=== PATIENT | male | born 1965 | race Caucasian/White ===

== ENCOUNTER 2016-04-18 17:39 | Inpatient (IN) | payer OTHER ==
[~2016-04-18] VITALS: Ht 157.5 cm; Wt 55.0 kg
[~2016-04-18 17:39] MED LIST: ADVIL,NUPRIN,M200 MG PO; ALLEGRA ALLERGY60 MG PO; ALLEGRA60 MG PO; ASPIR-LOW81 MG PO; ASPIRIN81 M2 PO; AUGMENTIN875 MG PO; BENADRYL ALLERG25 MG PO; BENADRYL25 MG PO; BUSPAR15 MG PO; BUSPIRONE HCL15 MG PO; CARDIZEM CD,CA120 MG PO; CARDIZEM CD120 M1 PO; CARDIZEM CD120 MG PO; CARDIZEM120 MG PO; CEPHALEXIN500 MG PO; CILOSTAZOL50 MG PO; CLONAZEPAM0.5 MG PO; CLONAZEPAM2 MG PO; CLONIDINE HCL0.1 MG PO; COLACE100 MG PO; DEPAKOTE ER (E500 MG PO; DEPAKOTE500 MG PO; DERMAPHOR228 GM TP; DIAZEPAM10 MG PO; DILTIAZEM 24HR120 MG PO; DIVALPROEX SOD500 MG PO; FLONASE16 G1 BOTH NARES; FLONASE16 GM NS; FUROSEMIDE20 MG PO; GLIPIZIDE ER2.5 MG PO; GLIPIZIDE XL5 MG PO; GLIPIZIDE5 MG PO; GLUCOTROL XL2.5 MG PO; HALCION0.25 MG PO; HALDOL0.5 MG PO; HALOPERIDOL0.5 MG PO; HEMORRHOIDAL OI57 G2 PR; JANUVIA100 MG PO; JANUVIA25 M1 PO; KLONOPIN0.5 M1 PO; KLONOPIN2 MG PO; KONSYL PSYLLIU3.4 GM PO; LASIX20 MG PO; LEVAQUIN500 MG PO; LEVAQUIN750 MG PO; LEVOFLOXACIN750 MG PO; LITHIUM CARBON300 MG NG; LITHIUM CARBON600 MG PO; LO-DOSE ASPIRIN81 M1 PO; LOPERAMIDE2 M1 PO; LOPERAMIDE2 MG PO; MELOXICAM15 MG PO; METFORMIN HCL1000 MG PO; MILK OF MAG W/360 ML PO; MITRAZOL POWDER30 GM PO; MOBIC15 MG PO; MUCINEX D ER T1 EACH PO; OLANZAPINE5 MG PO; PERIGUARD TP; PHILLIPS'400 MG/5 M PO; PLETAL50 MG PO; PREDNISONE10 MG PO; PREDNISONE20 MG PO; PROBIOTIC1 EAC1 PO; PSEUDOEPHEDRINE30 MG PO; Q-TUSSIN100 MG/5 M PO; REGULOID PO; RISPERDAL0.5 MG PO; RISPERDAL1 MG PO; ROBITUSSIN100 MG/5 M PO; SALINE NOSE SPR45 M1 BOTH NARES; SANI-SUPP1 EACH PR; TRADJENTA5 MG PO; TRIAZOLAM0.25 MG PO; TYLENOL REGULA325 MG PO; ULTRAVATE 0.05%15 GM PO; URSO FORTE500 MG PO; URSODIOL500 MG PO; ZIPRASIDONE HCL20 MG PO; ZYRTEC10 M2 PO
[2016-04-18 19:06] LABS: HEMATOCRIT 40.2 % (38.0-50.0); MCH 33.4 PG (29.0-34.0); MCHC 35.3 G/DL (30.0-36.0); MCV 94.6 FL (86-99); MEAN PLAT.VOLUME 9.2 uM^3 (9.0-12.4); PLATELET COUNT 130 K/uL (156-360); RBC DIS.WIDTH-CV 12.8 % (11.8-14.6); RBC DIS.WIDTH-SD 42.7 % (39-53); RED BLOOD COUNT 4.25 M/uL (4.00-5.50); WHITE BLOOD COUNT 7.8 K/uL (4.1-10.2)
[2016-04-18 19:14] LABS: CHLORIDE 111 mEq/L (99-109); POTASSIUM 4.2 mEq/L (3.7-5.4); SODIUM 145 mEq/L (136-147)
[2016-04-18 19:16] LABS: GLUCOSE 82 mg/dL (70-99)
[2016-04-18 19:17] LABS: ANION GAP 8 MEQ/L (2-14)
[2016-04-18 19:20] LABS: GFR ESTIMATE (CALCULATED) > 59 mL/min/
[2016-04-18 19:21] LABS: UREA NITROGEN (BUN) 25 mg/dL (9-23)
[2016-04-18 19:35] LABS: TOTAL BILIRUBIN 0.4 mg/dL (0.0-1.0)
[2016-04-18 19:36] LABS: ALKALINE PHOSPHATASE 123 IU/L (3-129)
[2016-04-18 19:39] LABS: DIRECT BILIRUBIN 0.2 mg/dL (0.0-0.3)
[2016-04-18 19:40] LABS: LIPASE 63 U/L (1.0-51.0)
[2016-04-18 19:46] LABS: TROP-I INTERPRETATION NEGATIVE; TROPONIN-I 0.02 ng/mL (0.0-0.30)
[2016-04-18 21:36] LABS: ADD MIUA? NO; BILIRUBIN NEGATIVE; BLOOD NEGATIVE; COLOR YELLOW ((YELLOW)); GLUCOSE (STRIP) NEGATIVE; KETONES NEGATIVE; LEUKOCYTES NEGATIVE; NITRITE NEGATIVE; PH, URINE 5.5 (5-8); PROTEIN (STRIP) NEGATIVE; UCUL ADDED? NO
[2016-04-18] MEDS ORDERED: AMLODIPINE BES2.5 MG PO (23:29)
[2016-04-18] MEDS ORDERED: CLONAZEPAM1 MG PO ×2 (23:44→23:48)
[2016-04-18] MEDS ORDERED: NEXIUM20 MG PO (23:49)
[2016-04-18 23:50] LABS: POINT-OF-CARE METER ID UU14100415
[2016-04-18] MEDS ORDERED: GLUCOTROL XL2.5 MG PO (23:51)
[2016-04-18] MEDS ORDERED: HYDROXYCHLOROQ200 MG PO (23:58)
[2016-04-19] MEDS ORDERED: MELOXICAM15 MG PO (00:04)
[2016-04-19] MEDS ORDERED: PERIGUARD TP (00:13)
[2016-04-19] MEDS ORDERED: PROBIOTIC1 EAC1 PO (00:22)
[2016-04-19 00:25] LABS: POINT-OF-CARE METER ID UU14100415
[2016-04-19] MEDS ORDERED: VITAMIN D31000 UNIT PO (00:27)
[2016-04-19] MEDS ORDERED: TRAMADOL HCL50 MG PO (00:34)
[2016-04-19] MEDS ORDERED: URSODIOL500 MG PO (00:34)
[2016-04-19] MEDS ORDERED: DIVALPROEX SOD500 MG PO (00:36)
[2016-04-19] MEDS ORDERED: GABAPENTIN100 MG PO (00:37)
[2016-04-19] MEDS ORDERED: ACETAMINOPHEN325 M1 PO (00:38)
[2016-04-19] MEDS ORDERED: GUAIFENESIN600 MG PO (00:39)
[2016-04-19] MEDS ORDERED: LOPERAMIDE2 M1 PO (00:40)
[2016-04-19] MEDS ORDERED: Q-TUSSIN DM SY240 ML PO (00:41)
[2016-04-19] MEDS ORDERED: MILK OF MAGN PO (00:41)
[2016-04-19] MEDS ORDERED: GLYCERIN1 EAC1 PR (00:42)
[2016-04-19] MEDS ORDERED: [UNRECOGNIZED DRUG - OTHER] PO (00:42)
[2016-04-19] MEDS ORDERED: TRIAZOLAM0.25 MG PO (00:43)
[2016-04-19 07:07] LABS: POINT-OF-CARE METER ID UU13113830
[2016-04-19 07:24] VITALS: BP 147/78
[2016-04-20 07:21] LABS: POINT-OF-CARE METER ID UU13113830; POINT-OF-CARE USER ID BHSTSA
[2016-04-20 12:19] LABS: POINT-OF-CARE METER ID UU13113830; POINT-OF-CARE USER ID HRSENV50
[2016-04-20 15:53] VITALS: BP 109/62
[2016-04-20 16:51] LABS: POINT-OF-CARE METER ID UU13113830
[2016-04-20 21:41] LABS: POINT-OF-CARE METER ID UU13113830; POINT-OF-CARE USER ID ENVTLS63
[2016-04-21 06:40] LABS: POINT-OF-CARE METER ID UU13113830; POINT-OF-CARE USER ID BHSMEW
[2016-04-21 13:42] LABS: POINT-OF-CARE METER ID UU13113830
[2016-04-21 17:13] LABS: CHLORIDE 107 mEq/L (99-109); POTASSIUM 4.4 mEq/L (3.7-5.4); SODIUM 143 mEq/L (136-147)
[2016-04-21 17:17] LABS: ANION GAP 13 MEQ/L (2-14)
[2016-04-21 17:19] LABS: ALKALINE PHOSPHATASE 131 IU/L (3-129); GFR ESTIMATE (CALCULATED) > 59 mL/min/; GLUCOSE 225 mg/dL (70-99); TOTAL BILIRUBIN 0.5 mg/dL (0.0-1.0)
[2016-04-21 17:20] LABS: UREA NITROGEN (BUN) 22 mg/dL (9-23)
[2016-04-21 17:21] LABS: DIRECT BILIRUBIN 0.2 mg/dL (0.0-0.3)
[2016-04-21 17:22] LABS: TROP-I INTERPRETATION NEGATIVE; TROPONIN-I < 0.01 ng/mL (0.0-0.30)
[2016-04-21 17:23] LABS: LIPASE 88 U/L (1.0-51.0)
[2016-04-21 17:30] LABS: INTACT PARATHYROID HORMONE 153 pg/mL (10-69)
[2016-04-21 21:14] LABS: POINT-OF-CARE METER ID UU13113830
[2016-04-22 12:13] LABS: POINT-OF-CARE METER ID UU13113830
[2016-04-22 16:45] LABS: POINT-OF-CARE METER ID UU13113830
[2016-04-22 21:00] LABS: POINT-OF-CARE METER ID UU13113830; POINT-OF-CARE USER ID BHSSMG
[2016-04-23 06:21] LABS: POINT-OF-CARE METER ID UU13113830; POINT-OF-CARE USER ID ENVTLS63
[2016-04-23 11:43] LABS: POINT-OF-CARE METER ID UU13113830
[2016-04-23 13:27] LABS: CHLORIDE 103 MEQ/L (99-109); POTASSIUM 4.7 MEQ/L (3.7-5.4); SODIUM 141 MEQ/L (136-147)
[2016-04-23 13:32] LABS: INTACT PARATHYROID HORMONE 158 pg/mL (10-69)
[2016-04-23 13:54] LABS: ALKALINE PHOSPHATASE 120 IU/L (3-129); ANION GAP 9 MEQ/L (2-14); DIRECT BILIRUBIN 0.1 mg/dL (0.0-0.3); GFR ESTIMATE (CALCULATED) > 59 mL/min/; GLUCOSE 151 mg/dL (70-99); LIPASE 58 U/L (1.0-51.0); SAMPLE HEMOLYSIS CHECK 2; SAMPLE ICTERIC CHECK 0; SAMPLE LIPEMIA CHECK 0; TOTAL BILIRUBIN 0.5 MG/DL (0.0-1.0); UREA NITROGEN (BUN) 20 mg/dL (9-23)
[2016-04-23 17:33] LABS: POINT-OF-CARE METER ID UU13113830
[2016-04-23 20:49] LABS: POINT-OF-CARE METER ID UU13113830; POINT-OF-CARE USER ID ENVTLS63
[2016-04-24 06:33] LABS: POINT-OF-CARE METER ID UU13113830; POINT-OF-CARE USER ID ENVTLS63
[2016-04-24 15:41] VITALS: BP 141/101
[2016-04-24 17:27] LABS: POINT-OF-CARE METER ID UU13113830
[2016-04-24 22:14] LABS: POINT-OF-CARE METER ID UU13113830
[2016-04-25 06:16] LABS: POINT-OF-CARE METER ID UU13113830
[2016-04-25 11:29] LABS: POINT-OF-CARE METER ID UU13113830
[2016-04-25 16:35] LABS: POINT-OF-CARE METER ID UU13113830
[2016-04-25 20:27] LABS: POINT-OF-CARE METER ID UU13113830
[2016-04-26 06:29] LABS: POINT-OF-CARE METER ID UU13113830
[2016-04-26 12:21] LABS: POINT-OF-CARE METER ID UU13113830; POINT-OF-CARE USER ID BHSTSA
[2016-04-26 16:21] VITALS: BP 116/58
[2016-04-26 21:38] LABS: POINT-OF-CARE METER ID UU13113830; POINT-OF-CARE USER ID BHSSMG
[2016-04-27 06:13] LABS: POINT-OF-CARE METER ID UU13113830; POINT-OF-CARE USER ID BHSSMG
[2016-04-27 13:30] LABS: POINT-OF-CARE METER ID UU13113830; POINT-OF-CARE USER ID HRSENV50
[2016-04-27 16:57] VITALS: BP 132/85
[2016-04-27 17:04] LABS: POINT-OF-CARE METER ID UU13113830
[2016-04-27 21:06] LABS: POINT-OF-CARE METER ID UU13113830
[2016-04-28 06:25] LABS: POINT-OF-CARE METER ID UU13113830; POINT-OF-CARE USER ID ENVTLS63
[2016-04-29 06:28] LABS: POINT-OF-CARE METER ID UU13113830; POINT-OF-CARE USER ID ENVTLS63
[2016-04-29 11:43] LABS: POINT-OF-CARE METER ID UU13113830; POINT-OF-CARE USER ID BHSTSA
[2016-04-29 20:50] LABS: POINT-OF-CARE METER ID UU13113830
[2016-04-30 06:36] LABS: POINT-OF-CARE METER ID UU13113830
[2016-04-30 11:48] LABS: POINT-OF-CARE METER ID UU13113830
[2016-04-30 11:59] LABS: POINT-OF-CARE METER ID UU13113830
[2016-04-30 15:44] VITALS: BP 165/93
[2016-04-30 16:05] LABS: POINT-OF-CARE METER ID UU13113830
[2016-04-30 19:36] VITALS: BP 124/89
[2016-04-30 21:35] LABS: POINT-OF-CARE METER ID UU13113830; POINT-OF-CARE USER ID BHSMEW
[2016-05-01 06:18] LABS: POINT-OF-CARE METER ID UU13113830; POINT-OF-CARE USER ID BHSSMG
[2016-05-01 07:39] VITALS: BP 131/91
[2016-05-01 11:44] LABS: POINT-OF-CARE METER ID UU13113830
[2016-05-01 21:28] LABS: POINT-OF-CARE METER ID UU13113830; POINT-OF-CARE USER ID BHSMEW
[2016-05-02 06:27] LABS: POINT-OF-CARE METER ID UU13113830
[2016-05-02 12:24] LABS: POINT-OF-CARE METER ID UU13113830
[2016-05-02 17:19] LABS: POINT-OF-CARE METER ID UU13113830
[2016-05-02 21:34] LABS: POINT-OF-CARE METER ID UU13113830
[2016-05-03 06:57] LABS: POINT-OF-CARE METER ID UU13113830
[2016-05-03 11:18] LABS: POINT-OF-CARE METER ID UU13113830; POINT-OF-CARE USER ID HRSENV50
[2016-05-03 15:56] LABS: POINT-OF-CARE METER ID UU13113830; POINT-OF-CARE USER ID BHSLRM
[2016-05-03 21:11] LABS: POINT-OF-CARE METER ID UU13113830; POINT-OF-CARE USER ID BHSSMG
[2016-05-04 06:16] LABS: POINT-OF-CARE METER ID UU13113830; POINT-OF-CARE USER ID BHSSMG
[2016-05-04 09:07] LABS: ANION GAP 7 MEQ/L (2-14); CHLORIDE 107 MEQ/L (99-109); GFR ESTIMATE (CALCULATED) > 59 mL/min/; GLUCOSE 226 mg/dL (70-99); POTASSIUM 4.7 MEQ/L (3.7-5.4); SAMPLE HEMOLYSIS CHECK 0; SAMPLE ICTERIC CHECK 0; SAMPLE LIPEMIA CHECK 0; SODIUM 141 MEQ/L (136-147); UREA NITROGEN (BUN) 23 mg/dL (9-23)
[2016-05-04 09:11] LABS: EOSINOPHIL (%) 2.4 % (0-5); EOSINOPHIL COUNT 0.2 K/uL (0-0.3); HEMATOCRIT 35.9 % (38.0-50.0); IMMATURE GRANULOCYTE (%) 0.5 % (0.0-0.7); IMMATURE GRANULOCYTE COUNT 0.4 K/uL; LYMPHOCYTE COUNT 1.4 K/uL (1.0-2.8); MCH 32.8 PG (29.0-34.0); MCHC 35.4 G/DL (30.0-36.0); MCV 92.8 FL (86-99); MONOCYTE (%) 5.4 % (3-12); MONOCYTE COUNT 0.5 K/uL (0-0.8); NEUTROPHIL (%) 75.2 % (45-76); NEUTROPHIL COUNT 6.5 K/uL (1.8-6.4); RBC DIS.WIDTH-CV 12.2 % (11.8-14.6); RBC DIS.WIDTH-SD 39.9 % (39-53); RED BLOOD COUNT 3.87 M/uL (4.00-5.50); WHITE BLOOD COUNT 8.7 K/uL (4.1-10.2)
[2016-05-04 09:12] LABS: MEAN PLAT.VOLUME 9.3 uM^3 (9.0-12.4); PLATELET COUNT 197 K/uL (156-360)
[2016-05-04] MEDS ORDERED: PROPRANOLOL HCL20 MG PO (10:38)
[2016-05-04] MEDS ORDERED: CLONAZEPAM0.5 MG PO (10:38)
[2016-05-04] MEDS ORDERED: OLANZAPINE5 MG PO ×2 (10:38)
[2016-05-04] MEDS ORDERED: CLONAZEPAM1 MG PO (10:38)
[2016-05-04] MEDS ORDERED: GABAPENTIN300 MG PO (10:38)
[2016-05-04] MEDS ORDERED: OLANZAPINE10 MG PO (10:38)
[2016-05-04] MEDS ORDERED: GLUCOTROL XL2.5 MG PO (10:38)
[2016-05-04] MEDS ORDERED: COGENTIN0.5 MG PO (10:38)
[2016-05-04] MEDS ORDERED: LORATADINE10 M2 PO (10:38)
[2016-05-04] MEDS ORDERED: LAMICTAL25 MG PO (10:38)
[2016-05-04] MEDS ORDERED: JANUVIA100 MG PO (10:38)
[2016-05-04] MEDS ORDERED: GLIPIZIDE5 MG PO (11:14)
[2016-05-04] MEDS ORDERED: KLONOPIN0.5 M1 PO (11:16)
[2016-05-04 12:58] LABS: POINT-OF-CARE METER ID UU13113830
[2016-05-04 17:07] LABS: POINT-OF-CARE METER ID UU13113830; POINT-OF-CARE USER ID BHSMEW
[2016-05-04 21:32] LABS: POINT-OF-CARE METER ID UU13113830; POINT-OF-CARE USER ID ENVTLS63
[2016-05-05 06:18] LABS: POINT-OF-CARE METER ID UU13113830; POINT-OF-CARE USER ID BHSMEW
[2016-05-05] MEDS ORDERED: TRAMADOL HCL50 MG PO (09:18)
[2016-05-05 12:04] LABS: POINT-OF-CARE METER ID UU13113830
== END 2016-05-05 14:00 | disposition home or self-care (01) | DRG 884 ==
LOC: EME 17:39 → 1WEST 23:20 → EDOF 23:20 → 1WEST 04-19 00:46
PROVIDERS: Emergency Medicine; Family Medicine; Nurse Practitioner Family; Psychiatry & Neurology Psychiatry
DX: F84.0 Autistic disorder (principal); F91.8 Other conduct disorders; E11.9 Type 2 diabetes mellitus without complications; G40.909 Epilepsy, unspecified, not intractable, without status epilepticus; F72 Severe intellectual disabilities; G47.20 Circadian rhythm sleep disorder, unspecified type; I10 Essential (primary) hypertension; Z88.8 Allergy status to other drugs, medicaments and biological substances; Z91.048 Other nonmedicinal substance allergy status
CPT/HCPCS: 71010; 80048; 80053; 80076; 81003; 82248; 82310; 82948; 83690; 83970; 84443; 84484; 85025; 85027; 90837; 93005; 99281; 99285; G0103; J1200; J1630; J1815; J2060; J2250; Q0161

== ENCOUNTER 2016-08-23 13:48 | Emergency (ER) | payer OTHER ==
[~2016-08-23] VITALS: Ht 162.6 cm; Wt 66.5 kg
[~2016-08-23 13:48] MED LIST changes: +ACETAMINOPHEN325 M1 PO; +AMLODIPINE BES2.5 MG PO; +CLONAZEPAM1 MG PO; +COGENTIN0.5 MG PO; +GABAPENTIN100 MG PO; +GABAPENTIN300 MG PO; +GLYCERIN1 EAC1 PR; +GUAIFENESIN600 MG PO; +HYDROXYCHLOROQ200 MG PO; +LAMICTAL25 MG PO; +LORATADINE10 M2 PO; +MILK OF MAGN PO; +NEXIUM20 MG PO; +OLANZAPINE10 MG PO; +PROPRANOLOL HCL20 MG PO; +Q-TUSSIN DM SY240 ML PO; +TRAMADOL HCL50 MG PO; +VITAMIN D31000 UNIT PO; +[UNRECOGNIZED DRUG - OTHER] PO
[2016-08-23 18:15] VITALS: BP 104/76
== END 2016-08-23 18:17 | disposition home or self-care (01) ==
LOC: EME 13:48
DX: S01.511A Laceration without foreign body of lip, initial encounter (principal); S00.83XA Contusion of other part of head, initial encounter; E11.9 Type 2 diabetes mellitus without complications; F84.0 Autistic disorder; W01.198A Fall on same level from slipping, tripping and stumbling with subsequent striking against other object, initial encounter; Z23 Encounter for immunization; F79 Unspecified intellectual disabilities; K21.9 Gastro-esophageal reflux disease without esophagitis
CPT/HCPCS: 70160; 99281; 99284; J1630; J2060

== ENCOUNTER 2017-04-30 17:35 | Emergency (ER) | payer OTHER ==
[~2017-04-30] VITALS: Ht 160 cm; Wt 64.5 kg
[2017-04-30 20:44] LABS: APPEARANCE CLEAR ((CLEAR)); BILIRUBIN NEGATIVE; BLOOD NEGATIVE; COLOR YELLOW ((YELLOW)); GLUCOSE (STRIP) NEGATIVE; KETONES NEGATIVE; LEUKOCYTES NEGATIVE; NITRITE NEGATIVE; PROTEIN (STRIP) NEGATIVE; SPECIFIC GRAVITY 1.016 (1.000-1.030); UROBILINOGEN 0.2 MG/DL (0.2-1.0)
[2017-04-30 20:48] LABS: BASOPHIL (%) 0.4 % (0-1); EOSINOPHIL (%) 2.8 % (0-5); EOSINOPHIL COUNT 0.2 K/uL (0-0.3); HEMATOCRIT 36.2 % (38.0-50.0); HEMOGLOBIN 12.7 G/DL (12.5-16.6); IMMATURE GRANULOCYTE (%) 0.3 % (0.0-0.7); LYMPHOCYTE (%) 27.7 % (15-42); LYMPHOCYTE COUNT 1.9 K/uL (1.0-2.8); MCH 33.2 PG (29.0-34.0); MCHC 35.1 G/DL (30.0-36.0); MCV 94.8 FL (86-99); MONOCYTE COUNT 0.7 K/uL (0-0.8); NEUTROPHIL (%) 58.8 % (45-76); NEUTROPHIL COUNT 3.9 K/uL (1.8-6.4); PLATELET COUNT 137 K/uL (156-360); RBC DIS.WIDTH-CV 12.8 % (11.8-14.6); RBC DIS.WIDTH-SD 44.3 % (39-53); RED BLOOD COUNT 3.82 M/uL (4.00-5.50); WHITE BLOOD COUNT 6.7 K/uL (4.1-10.2)
[2017-04-30 20:56] LABS: ALBUMIN 4.2 g/dL (3.2-4.8)
[2017-04-30 20:57] LABS: CHLORIDE 107 mEq/L (99-109); POTASSIUM 4.2 mEq/L (3.7-5.4); SODIUM 143 mEq/L (136-147)
[2017-04-30 20:59] LABS: GLUCOSE 108 mg/dL (70-99)
[2017-04-30 21:01] LABS: TOTAL BILIRUBIN 0.5 mg/dL (0.0-1.0)
[2017-04-30 21:02] LABS: ALKALINE PHOSPHATASE 154 IU/L (3-129)
[2017-04-30 21:03] LABS: CREATININE 1.3 mg/dL (0.6-1.3); GFR ESTIMATE (CALCULATED) > 59 mL/min/ (58.99-99999)
[2017-04-30 21:04] LABS: AST (GOT) 21 IU/L (2-34); DIRECT BILIRUBIN 0.2 mg/dL (0.0-0.3); UREA NITROGEN (BUN) 44 mg/dL (9-23)
[2017-04-30 21:06] LABS: ALT (GPT) 12 IU/L (3-49); LIPASE 37 U/L (1.0-51.0)
[2017-04-30] MEDS ORDERED: ZOFRAN ODT8 MG PO (23:12)
[2017-05-01 00:04] VITALS: BP 160/72
== END 2017-05-01 00:05 | disposition home or self-care (01) ==
LOC: EME 17:35
PROVIDERS: Physician Assistant
DX: F68.8 Other specified disorders of adult personality and behavior (principal); R11.10 Vomiting, unspecified; F41.9 Anxiety disorder, unspecified; F84.0 Autistic disorder; F72 Severe intellectual disabilities; I73.00 Raynaud's syndrome without gangrene; Z88.8 Allergy status to other drugs, medicaments and biological substances
CPT/HCPCS: 71045; 80048; 80076; 81003; 83690; 85025; 87502; 87651 90; 99281; 99285; J1630; J2060

== ENCOUNTER 2017-05-10 09:43 | Inpatient (IN) | payer OTHER ==
[~2017-05-10] VITALS: Ht 162.6 cm; Wt 62.2 kg
[~2017-05-10 09:43] MED LIST changes: +ZOFRAN ODT8 MG PO
[2017-05-10 10:59] LABS: BASOPHIL (%) 0.3 % (0-1); EOSINOPHIL (%) 1.3 % (0-5); EOSINOPHIL COUNT 0.1 K/uL (0-0.3); HEMATOCRIT 36.6 % (38.0-50.0); IMMATURE GRANULOCYTE (%) 0.4 % (0.0-0.7); LYMPHOCYTE (%) 10.1 % (15-42); LYMPHOCYTE COUNT 0.9 K/uL (1.0-2.8); MCH 33.1 PG (29.0-34.0); MCHC 35.2 G/DL (30.0-36.0); MCV 93.8 FL (86-99); MONOCYTE (%) 8.1 % (3-12); MONOCYTE COUNT 0.7 K/uL (0-0.8); NEUTROPHIL (%) 79.8 % (45-76); NEUTROPHIL COUNT 7.3 K/uL (1.8-6.4); RBC DIS.WIDTH-CV 12.9 % (11.8-14.6); WHITE BLOOD COUNT 9.2 K/uL (4.1-10.2)
[2017-05-10 11:03] LABS: ALBUMIN 3.9 g/dL (3.2-4.8); CHLORIDE 108 mEq/L (99-109); POTASSIUM 4.9 mEq/L (3.7-5.4); SODIUM 141 mEq/L (136-147)
[2017-05-10 11:05] LABS: GLUCOSE 168 mg/dL (70-99)
[2017-05-10 11:06] LABS: TOTAL PROTEIN 6.5 g/dL (6.4-8.3)
[2017-05-10 11:07] LABS: TOTAL BILIRUBIN 1.1 mg/dL (0.0-1.0)
[2017-05-10 11:09] LABS: ALKALINE PHOSPHATASE 677 IU/L (3-129); CREATININE 1.1 mg/dL (0.6-1.3); GFR ESTIMATE (CALCULATED) > 59 mL/min/ (58.99-99999)
[2017-05-10 11:10] LABS: UREA NITROGEN (BUN) 27 mg/dL (9-23)
[2017-05-10 11:11] LABS: AST (GOT) 511 IU/L (2-34)
[2017-05-10 11:12] LABS: ALT (GPT) 299 IU/L (3-49); LIPASE 31 U/L (1.0-51.0)
[2017-05-10 11:46] LABS: HEMOGLOBIN 12.9 G/DL (12.5-16.6)
[2017-05-10 12:28] LABS: PLATELET COUNT 156 K/uL (156-360)
[2017-05-10] MEDS ORDERED: KLONOPIN2 MG PO (15:45)
[2017-05-10] MEDS ORDERED: COLACE100 MG PO (15:46)
[2017-05-10] MEDS ORDERED: PROBIOTIC1 EAC1 PO (15:48)
[2017-05-10] MEDS ORDERED: MOBIC15 MG PO (15:49)
[2017-05-10] MEDS ORDERED: PRILOSEC20 MG PO (15:51)
[2017-05-10] MEDS ORDERED: CLARITIN,ALAVAR10 MG PO (15:52)
[2017-05-10] MEDS ORDERED: JANUVIA100 MG PO (15:53)
[2017-05-10] MEDS ORDERED: NEURONTIN300 MG PO (15:55)
[2017-05-10] MEDS ORDERED: LAMICTAL25 MG PO (15:56)
[2017-05-10] MEDS ORDERED: INDERAL60 MG PO (15:56)
[2017-05-10] MEDS ORDERED: IRON325 M1 PO (15:58)
[2017-05-10] MEDS ORDERED: MELATONIN10 M1 PO (15:58)
[2017-05-10] MEDS ORDERED: PROZAC20 MG PO (15:59)
[2017-05-10 21:49] VITALS: BP 134/82
[2017-05-11] VITALS: BP 147/79
[2017-05-11 06:03] LABS: ALBUMIN 3.8 G/DL (3.2-4.8); ALKALINE PHOSPHATASE 465 IU/L (3-129); ALT (GPT) 152 IU/L (3-49); AST (GOT) 131 IU/L (2-34); CHLORIDE 107 MEQ/L (99-109); CREATININE 0.8 MG/DL (0.6-1.3); GFR ESTIMATE (CALCULATED) > 59 mL/min/ (58.99-99999); GLUCOSE 128 mg/dL (70-99); POTASSIUM 4.2 MEQ/L (3.7-5.4); SODIUM 140 MEQ/L (136-147); TOTAL BILIRUBIN 0.6 MG/DL (0.0-1.0); TOTAL PROTEIN 6.2 G/DL (6.4-8.3); UREA NITROGEN (BUN) 19 mg/dL (9-23)
[2017-05-11 07:45] VITALS: BP 146/79
[2017-05-11 16:07] VITALS: BP 169/72
[2017-05-11 23:58] VITALS: BP 103/50
[2017-05-12 06:30] LABS: BASOPHIL (%) 0.3 % (0-1); EOSINOPHIL (%) 1.9 % (0-5); EOSINOPHIL COUNT 0.1 K/uL (0-0.3); HEMATOCRIT 32.5 % (38.0-50.0); HEMOGLOBIN 11.2 G/DL (12.5-16.6); IMMATURE GRANULOCYTE (%) 0.7 % (0.0-0.7); LYMPHOCYTE (%) 18.9 % (15-42); LYMPHOCYTE COUNT 1.3 K/uL (1.0-2.8); MCH 32.5 PG (29.0-34.0); MCHC 34.5 G/DL (30.0-36.0); MCV 94.2 FL (86-99); MONOCYTE COUNT 0.7 K/uL (0-0.8); NEUTROPHIL (%) 68.2 % (45-76); NEUTROPHIL COUNT 4.8 K/uL (1.8-6.4); PLATELET COUNT 159 K/uL (156-360); RBC DIS.WIDTH-CV 12.6 % (11.8-14.6); RBC DIS.WIDTH-SD 43.4 % (39-53); RED BLOOD COUNT 3.45 M/uL (4.00-5.50)
[2017-05-12 06:45] VITALS: BP 103/54
[2017-05-12 07:04] LABS: CHLORIDE 105 MEQ/L (99-109); CREATININE 1.1 MG/DL (0.6-1.3); GFR ESTIMATE (CALCULATED) > 59 mL/min/ (58.99-99999); GLUCOSE 124 mg/dL (70-99); POTASSIUM 4.2 MEQ/L (3.7-5.4); SODIUM 140 MEQ/L (136-147); UREA NITROGEN (BUN) 20 mg/dL (9-23)
[2017-05-12 12:31] LABS: ALBUMIN 3.5 G/DL (3.2-4.8); ALKALINE PHOSPHATASE 349 IU/L (3-129); ALT (GPT) 88 IU/L (3-49); DIRECT BILIRUBIN 0.1 mg/dL (0.0-0.3); TOTAL BILIRUBIN 0.7 MG/DL (0.0-1.0); TOTAL PROTEIN 5.8 G/DL (6.4-8.3)
[2017-05-12 12:32] LABS: AST (GOT) 39 IU/L (2-34)
[2017-05-12 21:40] VITALS: BP 134/64
[2017-05-12 23:27] VITALS: BP 100/60
[2017-05-13 06:19] LABS: BASOPHIL (%) 0.4 % (0-1); EOSINOPHIL (%) 2.8 % (0-5); EOSINOPHIL COUNT 0.2 K/uL (0-0.3); HEMOGLOBIN 12.2 G/DL (12.5-16.6); IMMATURE GRANULOCYTE (%) 0.6 % (0.0-0.7); LYMPHOCYTE COUNT 1.1 K/uL (1.0-2.8); MCH 33.2 PG (29.0-34.0); MCHC 35.9 G/DL (30.0-36.0); MCV 92.4 FL (86-99); MONOCYTE (%) 9.9 % (3-12); MONOCYTE COUNT 0.5 K/uL (0-0.8); NEUTROPHIL (%) 65.3 % (45-76); NEUTROPHIL COUNT 3.5 K/uL (1.8-6.4); PLATELET COUNT 141 K/uL (156-360); RBC DIS.WIDTH-CV 12.4 % (11.8-14.6); RBC DIS.WIDTH-SD 41.8 % (39-53); RED BLOOD COUNT 3.68 M/uL (4.00-5.50); WHITE BLOOD COUNT 5.3 K/uL (4.1-10.2)
[2017-05-13 06:57] LABS: ALBUMIN 3.3 G/DL (3.2-4.8); ALT (GPT) 84 IU/L (3-49); CHLORIDE 107 MEQ/L (99-109); CREATININE 0.8 MG/DL (0.6-1.3); DIRECT BILIRUBIN 0.1 mg/dL (0.0-0.3); GFR ESTIMATE (CALCULATED) > 59 mL/min/ (58.99-99999); GLUCOSE 103 mg/dL (70-99); POTASSIUM 4.4 MEQ/L (3.7-5.4); SODIUM 137 MEQ/L (136-147); TOTAL BILIRUBIN 0.6 MG/DL (0.0-1.0); TOTAL PROTEIN 5.4 G/DL (6.4-8.3); UREA NITROGEN (BUN) 16 mg/dL (9-23)
[2017-05-13 07:00] LABS: ALKALINE PHOSPHATASE 443 IU/L (3-129); AST (GOT) 74 IU/L (2-34)
[2017-05-13 07:39] VITALS: BP 133/60
[2017-05-13 16:05] VITALS: BP 142/81
[2017-05-13 23:26] VITALS: BP 139/68
[2017-05-14 06:55] LABS: ALBUMIN 3.2 G/DL (3.2-4.8); ALKALINE PHOSPHATASE 344 IU/L (3-129); ALT (GPT) 51 IU/L (3-49); CHLORIDE 110 MEQ/L (99-109); CREATININE 0.8 MG/DL (0.6-1.3); GFR ESTIMATE (CALCULATED) > 59 mL/min/ (58.99-99999); POTASSIUM 4.1 MEQ/L (3.7-5.4); SODIUM 140 MEQ/L (136-147); TOTAL PROTEIN 5.6 G/DL (6.4-8.3); UREA NITROGEN (BUN) 16 mg/dL (9-23)
[2017-05-14 07:00] LABS: AST (GOT) 24 IU/L (2-34); GLUCOSE 228 mg/dL (70-99); TOTAL BILIRUBIN 0.3 MG/DL (0.0-1.0)
[2017-05-14] MEDS ORDERED: FLUOXETINE HCL20 MG PO (10:52)
[2017-05-14] MEDS ORDERED: POLYETHYLENE GL17 GM PO (10:52)
[2017-05-14] MEDS ORDERED: OLANZAPINE10 MG PO (10:52)
[2017-05-14] MEDS ORDERED: PANTOPRAZOLE SO40 MG PO (10:52)
[2017-05-14] MEDS ORDERED: GLUCOTROL XL5 MG PO (11:04)
[2017-05-14 18:46] LABS: ANTI-SMOOTH MUSCLE (Actin)+ <20 U (<20)
[2017-05-14 22:39] VITALS: BP 113/56
[2017-05-15 07:10] VITALS: BP 108/53
[2017-05-15 16:25] VITALS: BP 131/76
[2017-05-15 19:49] LABS: MITOCHONDRIAL (M2) ANTIBODIES+ <=20.0 U (<=20.0)
[2017-05-15 20:55] VITALS: BP 132/68
[2017-05-16 00:04] VITALS: BP 117/60
[2017-05-16 07:00] LABS: BASOPHIL (%) 0.7 % (0-1); EOSINOPHIL (%) 2.7 % (0-5); EOSINOPHIL COUNT 0.2 K/uL (0-0.3); LYMPHOCYTE (%) 30.3 % (15-42); LYMPHOCYTE COUNT 1.8 K/uL (1.0-2.8); MCH 32.4 PG (29.0-34.0); MCHC 34.4 G/DL (30.0-36.0); MCV 94.4 FL (86-99); MONOCYTE (%) 9.1 % (3-12); MONOCYTE COUNT 0.6 K/uL (0-0.8); NEUTROPHIL (%) 56.2 % (45-76); NEUTROPHIL COUNT 3.4 K/uL (1.8-6.4); PLATELET COUNT 176 K/uL (156-360); RBC DIS.WIDTH-CV 12.8 % (11.8-14.6); RBC DIS.WIDTH-SD 43.8 % (39-53); RED BLOOD COUNT 3.39 M/uL (4.00-5.50)
[2017-05-16 07:30] LABS: CHLORIDE 108 MEQ/L (99-109); CREATININE 0.8 MG/DL (0.6-1.3); GFR ESTIMATE (CALCULATED) > 59 mL/min/ (58.99-99999); GLUCOSE 131 mg/dL (70-99); POTASSIUM 4.1 MEQ/L (3.7-5.4); SODIUM 142 MEQ/L (136-147); UREA NITROGEN (BUN) 22 mg/dL (9-23)
[2017-05-16 07:40] VITALS: BP 114/66
[2017-05-16] MEDS ORDERED: HALDOL2 MG PO (13:00)
== END 2017-05-16 13:15 | disposition home or self-care (01) | DRG 641 ==
LOC: EME 09:43 → EDOF 13:23 → 5EAST 13:23 → ENRESERV 13:25 → 5EAST 20:26
PROVIDERS: Emergency Medicine; Family Medicine; Internal Medicine Gastroenterology
DX: R63.0 Anorexia (principal); F72 Severe intellectual disabilities; F84.0 Autistic disorder; F84.8 Other pervasive developmental disorders; R11.2 Nausea with vomiting, unspecified; K29.00 Acute gastritis without bleeding; E11.9 Type 2 diabetes mellitus without complications; F17.210 Nicotine dependence, cigarettes, uncomplicated; F41.9 Anxiety disorder, unspecified; G40.909 Epilepsy, unspecified, not intractable, without status epilepticus; I10 Essential (primary) hypertension; I73.00 Raynaud's syndrome without gangrene; K44.9 Diaphragmatic hernia without obstruction or gangrene; K59.00 Constipation, unspecified; R63.4 Abnormal weight loss; G47.9 Sleep disorder, unspecified; F39 Unspecified mood [affective] disorder; R45.1 Restlessness and agitation; F06.8 Other specified mental disorders due to known physiological condition; Z78.1 Physical restraint status; Z68.23 Body mass index [BMI] 23.0-23.9, adult
CPT/HCPCS: 36415; 74177; 80048; 80053; 80076; 81003; 82140; 82948; 83516 90; 83690; 85025; 85025 91; 85610; 86038; 86235; 86256 90; 88305; 88342 TC; 99281; 99285; J1630; J1650; J2060; J2250; J3486; J7030

== ENCOUNTER 2017-05-29 20:33 | Emergency (ER) | payer OTHER ==
[~2017-05-29] VITALS: Ht 172.7 cm; Wt 65.2 kg
[~2017-05-29 20:33] MED LIST changes: +CLARITIN,ALAVAR10 MG PO; +FLUOXETINE HCL20 MG PO; +GLUCOTROL XL5 MG PO; +HALDOL2 MG PO; +INDERAL60 MG PO; +IRON325 M1 PO; +MELATONIN10 M1 PO; +NEURONTIN300 MG PO; +PANTOPRAZOLE SO40 MG PO; +POLYETHYLENE GL17 GM PO; +PRILOSEC20 MG PO; +PROZAC20 MG PO
[2017-05-29 21:42] LABS: BASOPHIL (%) 0.5 % (0-1); EOSINOPHIL (%) 2.8 % (0-5); EOSINOPHIL COUNT 0.2 K/uL (0-0.3); HEMATOCRIT 30.9 % (38.0-50.0); HEMOGLOBIN 10.5 G/DL (12.5-16.6); IMMATURE GRANULOCYTE (%) 0.5 % (0.0-0.7); LYMPHOCYTE (%) 20.4 % (15-42); LYMPHOCYTE COUNT 1.3 K/uL (1.0-2.8); MCH 34.1 PG (29.0-34.0); MONOCYTE (%) 12.1 % (3-12); MONOCYTE COUNT 0.8 K/uL (0-0.8); NEUTROPHIL (%) 63.7 % (45-76); NEUTROPHIL COUNT 4.1 K/uL (1.8-6.4); PLATELET COUNT 207 K/uL (156-360); RBC DIS.WIDTH-CV 15.9 % (11.8-14.6); RBC DIS.WIDTH-SD 58.3 % (39-53); RED BLOOD COUNT 3.08 M/uL (4.00-5.50); WHITE BLOOD COUNT 6.5 K/uL (4.1-10.2)
[2017-05-29 21:45] LABS: MCV 100.3 FL (86-99)
[2017-05-29 21:49] LABS: CHLORIDE 110 mEq/L (99-109)
[2017-05-29 21:50] LABS: SODIUM 144 mEq/L (136-147)
[2017-05-29 21:51] LABS: GLUCOSE 116 mg/dL (70-99)
[2017-05-29 21:55] LABS: CREATININE 0.8 mg/dL (0.6-1.3); GFR ESTIMATE (CALCULATED) > 59 mL/min/ (58.99-99999)
[2017-05-29 21:56] LABS: UREA NITROGEN (BUN) 23 mg/dL (9-23)
[2017-05-29 22:00] LABS: TROP-I INTERPRETATION NEGATIVE; TROPONIN-I < 0.01 ng/mL (0.0-0.30)
[2017-05-30 00:04] LABS: APPEARANCE CLEAR ((CLEAR)); BILIRUBIN NEGATIVE; BLOOD NEGATIVE; COLOR YELLOW ((YELLOW)); GLUCOSE (STRIP) NEGATIVE; KETONES NEGATIVE; LEUKOCYTES NEGATIVE; NITRITE NEGATIVE; PROTEIN (STRIP) NEGATIVE; UCUL ADDED? NO
[2017-05-30 00:39] VITALS: BP 123/71
== END 2017-05-30 00:40 | disposition home or self-care (01) ==
LOC: EME → EDBD 20:33 → EME 20:33
PROVIDERS: Emergency Medicine
PROC: 0HQ0XZZ Repair Scalp Skin, External Approach (ICD-10-PCS; principal; 2017-05-29)
DX: S01.01XA Laceration without foreign body of scalp, initial encounter (principal); M25.551 Pain in right hip; W18.2XXA Fall in (into) shower or empty bathtub, initial encounter; Y93.E1 Activity, personal bathing and showering; I73.00 Raynaud's syndrome without gangrene; E11.9 Type 2 diabetes mellitus without complications; F84.0 Autistic disorder; F79 Unspecified intellectual disabilities; F41.9 Anxiety disorder, unspecified; R56.9 Unspecified convulsions; Z90.49 Acquired absence of other specified parts of digestive tract; Z79.84 Long term (current) use of oral hypoglycemic drugs; Z88.8 Allergy status to other drugs, medicaments and biological substances
CPT/HCPCS: 70450; 71045; 73502; 80048; 81003; 83605; 84484; 85025; 93005; 99281; 99284

== ENCOUNTER 2017-07-20 21:47 | Emergency (ER) | payer OTHER ==
[~2017-07-20] VITALS: Ht 167.6 cm; Wt 60.5 kg
[2017-07-20 23:21] VITALS: BP 106/61
== END 2017-07-20 23:25 | disposition home or self-care (01) ==
LOC: EME → EDBD 21:47 → EME 23:25
PROC: 0HQ0XZZ Repair Scalp Skin, External Approach (ICD-10-PCS; principal; 2017-07-20)
DX: S09.90XA Unspecified injury of head, initial encounter (principal); S01.01XA Laceration without foreign body of scalp, initial encounter; W01.10XA Fall on same level from slipping, tripping and stumbling with subsequent striking against unspecified object, initial encounter; F79 Unspecified intellectual disabilities; Z88.8 Allergy status to other drugs, medicaments and biological substances
CPT/HCPCS: 99281; 99284